=== PATIENT | female | born 2000 | race Caucasian/White ===

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

== ENCOUNTER 2019-09-14 | Emergency (ER) | payer SELFPAY ==
[2019-09-14] MEDS ORDERED: KEFLEX500 M1 PO (12:15)
[2019-09-14] MEDS ORDERED: TYLENOL # 31 TA1 PO (12:15)
== END 2019-09-14 12:20 | disposition home or self-care (01) | DRG 159 ==
DX: S02.5XXA Fracture of tooth (traumatic), initial encounter for closed fracture (principal); X58.XXXA Exposure to other specified factors, initial encounter

== ENCOUNTER 2020-01-26 | Emergency (ER) | payer SELFPAY ==
[~2020-01-26] MED LIST changes: +KEFLEX500 M1 PO; +TYLENOL # 31 TA1 PO
[2020-01-26 00:50] LABS: HEMATOCRIT 36.6 % (37.0-47.0); HEMOGLOBIN 12.4 g/dl (12.0-16.0); IMMATURE GRANULOCYTES 0.2 % (0.0-5.0); MEAN CELL VOLUME 83.9 fL CALC (80.0-100.0); MEAN CORPUSCULAR HGB 28.4 pG CALC (26.0-32.0); MEAN CORPUSCULAR HGB CONC 33.9 g/dL CAL (32.0-36.0); NEUT# 6.09 thou/uL (2.00-7.15); RED BLOOD COUNT 4.36 mill/uL (4.20-5.60); RED CELL DISTRI WIDTH 13.1 % (11.5-15.5)
[2020-01-26 01:03] LABS: ALKALINE PHOSPHATASE 53 u/l (38-126); ANION GAP 12 (6-22 (CALC)); BILIRUBIN, TOTAL 0.2 mg/dL (0.0-1.4); BUN 10 mg/dL (7-17); BUN/CREATININE RATIO 17 (12-20 (CALC)); CARBON DIOXIDE 21 mmol/l (22-30); CHLORIDE 109 mmol/l (95-108); CREATININE 0.6 mg/dL (0.5-1.0); GFR > 60 ML/MIN (>=60 (CALC)); GFR FOR AFR.AMER. > 60 ML/MIN (>=60 (CALC)); POTASSIUM 3.5 mmol/l (3.5-5.1); SGOT/AST 21 u/l (14-36); SODIUM 138 mmol/l (137-146); TOTAL PROTEIN 7.2 g/dL (6.3-8.2)
[2020-01-26 01:56] LABS: URINE BILIRUBIN - DIPSTICK NEGATIVE (NEGATIVE); URINE BLOOD DIPSTICK NEGATIVE (NEGATIVE); URINE COLOR YELLOW; URINE GLUCOSE - DIPSTICK NEGATIVE (NEGATIVE); URINE KETONE NEGATIVE (NEGATIVE); URINE LEUK ESTERASE NEGATIVE (NEGATIVE); URINE PROTEIN - DIPSTICK NEGATIVE (NEG-TRACE); URINE UROBILINOGEN - DIPSTICK 0.2 E.U./dL (0.2)
[2020-01-26 01:58] LABS: URINE NITRITE - DIPSTICK POSITIVE (Negative)
[2020-01-26 02:01] LABS: URINE RBC 0-2 RBC/hpf (0-5)
[2020-01-26 02:02] LABS: BARBITURATES NEGATIVE (NEGATIVE); COCAINE NEGATIVE (NEGATIVE); METHADONE NEGATIVE (NEGATIVE); OXCYCODONE NEGATIVE (NEGATIVE); TETRAHYDROCANNABIONOL NEGATIVE (NEGATIVE); TRICYLIC ANTIDEPRESSANTS NEGATIVE (NEGATIVE); URINE AMORPH SEDIMENT MANY hpf (NONE-FEW); URINE BACTERIA MANY hpf; URINE SQUAMOUS EPITHELIAL CELL FEW EPI/hpf (0-FEW)
[2020-01-26] MEDS ORDERED: MECLIZINE25 MG PO (02:08)
== END 2020-01-26 02:23 | disposition home or self-care (01) | DRG 149 ==
PROVIDERS: Family Medicine
DX: R42 Dizziness and giddiness (principal); R82.71 Bacteriuria

== ENCOUNTER 2020-01-27 11:07 | Emergency (ER) | payer OTHER ==
[~2020-01-27 11:07] MED LIST changes: +MECLIZINE25 MG PO
[2020-01-27 11:50] VITALS: BP 126/69
== END 2020-01-27 11:52 | disposition home or self-care (01) | DRG 605 ==
LOC: ED 11:07
DX: S80.811A Abrasion, right lower leg, initial encounter (principal); M25.552 Pain in left hip; V58.5XXA Driver of pick-up truck or van injured in noncollision transport accident in traffic accident, initial encounter

== ENCOUNTER 2020-11-01 13:37 | Emergency (ER) | payer SELFPAY ==
[~2020-11-01] VITALS: Ht 162.6 cm; Wt 77.0 kg
[2020-11-01 14:54] VITALS: BP 116/56
== END 2020-11-01 14:57 | disposition home or self-care (01) | DRG 605 ==
LOC: ED 13:37
PROC: 0HQGXZZ Repair Left Hand Skin, External Approach (ICD-10-PCS; principal; 2020-11-01)
DX: S61.012A Laceration without foreign body of left thumb without damage to nail, initial encounter (principal); W45.8XXA Other foreign body or object entering through skin, initial encounter; Y92.89 Other specified places as the place of occurrence of the external cause; Y99.0 Civilian activity done for income or pay